=== PATIENT | female | born 1960 | race Caucasian/White ===

== ENCOUNTER 2018-09-02 13:03 | Emergency (ER) | payer BC, SELFPAY ==
[2018-09-02 13:05] VITALS: BP 124/70; PULSE 89; RESP 17; TEMP 36.3; O2SAT 98; BMI 27.4
--- NOTE | 2018-09-02 13:24 | RAD_ITS ---
STUDY: X-RAY - RIGHT KNEE REASON FOR EXAM: Female, 57 years old. Knee pain TECHNIQUE: AP and lateral view(s) of the knee. COMPARISON: None. FINDINGS: Normal visualized distal femur. Normal visualized proximal tibia and fibula. Normal proximal tibiofibular articulation. Normal medial femorotibial compartment. Normal lateral femorotibial compartment. Normal patellofemoral articulation. There is mild soft tissue edema. RAD/Knee 1 or 2 Views IMPRESSION: Mild soft tissue edema, no fractures Electronically Signed: Hector Sheikh, at 16:09 EDT Tel , Service support ,
--- NOTE | 2018-09-02 13:24 | RAD_ITS ---
STUDY: X-RAY - RIGHT TIBIA AND FIBULA REASON FOR EXAM: Female, 57 years old. Pain TECHNIQUE: AP and lateral view view(s) of the tibia and fibula were obtained. COMPARISON: None. FINDINGS: Normal visualized tibia. Normal visualized fibula. There is mild soft tissue edema. The bone mineralization is normal. No fracture RAD/Tibia & Fibula 2 Views IMPRESSION: Mild soft tissue edema, no fractures Electronically Signed: Hector Sheikh, at 16:08 EDT Tel , Service support ,
--- NOTE | 2018-09-02 13:24 | RAD_ITS ---
STUDY: X-RAY - RIGHT FOOT CLINICAL: Female, 57 years old. Foot pain TECHNIQUE: 5 view(s) of the foot. COMPARISON: None. FINDINGS: Normal talus, calcaneus, and tarsal bones. Normal visualized subtalar, talonavicular, calcaneocuboid, tarsal and tarsometatarsal articulations. Normal metatarsi. Normal metatarsophalangeal joint of the great toe. Normal tibial and fibular sesamoid bones. Normal interphalangeal joint of the great toe. Normal phalanges of the great toe. Normal second through fifth metatarsophalangeal joints. Normal interphalangeal joints and phalanges of the lesser toes. There is mild soft tissue edema. There is mild cortical deformity of the base of fifth metatarsal and the angled views. RAD/Foot min 3 Views IMPRESSION: Soft tissue edema Mild cortical deformity base of the fifth metatarsal most likely projectional finding. If the patient has point tenderness in this region CT would be recommended to exclude fracture Electronically Signed: Hector Sheikh, at 16:07 EDT Tel , Service support ,
--- NOTE | 2018-09-02 13:27 | ED.VISSUMM ---
- ER Visit Summary Date of Service: 09/02/18 Chief Complaint: [Injury right leg] History of Present Illness: The patient is a 57 F [presents to the emergency department after sustaining an injury to her right leg when she jumped out of a pickup truck bed yesterday. Patient immediately felt discomfort in her knee and foot. Patient having a hard time bearing any weight secondary to pain. She did not actually fall down. She did not strike her head. Patient otherwise has no medical history. She denies any other injuries.] Physical Examination: [HEENT-PERRLA, EOMI. Cranial nerves II through XII grossly intact. TMs clear. Mucous membranes moist. No adenopathy. Cardiovascular-regular rate and rhythm without murmur or ectopy Lungs-clear to auscultation, chest wall stable without crepitus or subcu emphysema Abdomen-normoactive bowel sounds, soft, nontender, no rebound or rigidity, no peritoneal signs. Extremities-intact ?4, normal range of motion, normal pulses, atraumatic. Right leg-evaluation of the knee reveals some tenderness over the lateral joint line and proximal fibula. Patient has pain with lifting the leg off the bed as well as with flexion extension at the knee. Ligamentous exam difficult secondary to pain. Patient has some mild tenderness to palpation over the lateral aspect of the talus and posterior calcaneus. Achilles tendon is intact and nontender. Negative Guerrero's test. Neurovascular intact distally.] Test Results: [X-rays of the right foot obtained showed questionable cortical irregularity at the base of the fifth metatarsal and it is unclear if this is projectional versus possible fracture. X-rays of the tib-fib and knee obtained showed no fractures only some mild soft tissue swelling.] Emergency Department Course and Treatment: [Patient has minimal tenderness over the base of the fifth metatarsal therefore my suspicion for fracture is low. Patient was placed in a postop shoe and given a knee immobilizer.] Treatment Plan: [Patient to follow-up with orthopedics signalling and communications engineer. Patient given crutches and knee immobilizer. She denies anything for pain. She will continue to use ibuprofen.] Disposition: [Discharged home stable condition.] Impression: [Right foot sprain Right knee sprain-possible internal derangement] This note was generated with [employer] software. It may contain incorrect words, spelling, and punctuation that were not noted in review of the chart prior to signing ED Disposition - Plan for ED Patient: Referrals: [facility] Doctor,Out of [NON-STAFF] -
--- NOTE | 2018-09-02 16:29 | ED.DEP ---
ED Disposition - Plan for ED Patient: Instructions: ED Meniscal Injury Knee Poss, ED Sprain Foot Referrals: [facility],Out of [NON-STAFF] - Jennifer Arndt DO [STAFF PHYSICIAN] - 3-5 Days
== END 2018-09-02 16:52 | disposition home or self-care (01) ==
PROVIDERS: Emergency Provider Emergency Medicine; Family Provider Nurse Practitioner; PCP Nurse Practitioner
DX: S93.601A Unspecified sprain of right foot, initial encounter (principal); S83.91XA Sprain of unspecified site of right knee, initial encounter; W17.89XA Other fall from one level to another, initial encounter; Y93.9 Activity, unspecified; Y92.9 Unspecified place or not applicable; Y99.9 Unspecified external cause status
CPT/HCPCS: 73560; 73590; 73630; 99284

== ENCOUNTER → 2018-09-20 08:04 | Outpatient (CLI) | payer SELFPAY ==
[2018-09-06 13:02] VITALS: BMI 28.3
--- NOTE | 2018-09-20 08:06 | RAD_ITS ---
STUDY: X-RAY - RIGHT FOOT CLINICAL: Female, 58 years old. Fracture TECHNIQUE: 3 view(s) of the foot. COMPARISON: 09/02/2018 FINDINGS: Normal talus, calcaneus, and tarsal bones. Normal visualized subtalar, talonavicular, calcaneocuboid, tarsal and tarsometatarsal articulations. Remote deformity of the fifth metatarsal. Normal metatarsophalangeal joint of the great toe. Normal tibial and fibular sesamoid bones. Normal interphalangeal joint of the great toe. Normal phalanges of the great toe. Normal second through fifth metatarsophalangeal joints. Normal interphalangeal joints and phalanges of the lesser toes. The soft tissue structures are unremarkable. RAD/Foot min 3 Views IMPRESSION: Remote deformity of the fifth metatarsal. No acute osseous abnormality is evident. Electronically Signed: Perez King MD at 16:51 EDT Tel , Service support ,
== END ==
PROVIDERS: Family Provider Nurse Practitioner; PCP Nurse Practitioner; Referring Provider Physician Assistant; Visit Provider Physician Assistant
DX: S92.351A Displaced fracture of fifth metatarsal bone, right foot, initial encounter for closed fracture (principal); X58.XXXA Exposure to other specified factors, initial encounter; Y93.9 Activity, unspecified; Y92.9 Unspecified place or not applicable; Y99.9 Unspecified external cause status
CPT/HCPCS: 73630

== ENCOUNTER → 2018-10-22 08:49 | Outpatient (CLI) | payer SELFPAY ==
[2018-10-22 08:36] VITALS: BMI 28.3
--- NOTE | 2018-10-22 08:51 | RAD_ITS ---
STUDY: X-RAY - RIGHT KNEE REASON FOR EXAM: Female, 58 years old. Right knee injury TECHNIQUE: 5 view(s) of the knee. COMPARISON: None. FINDINGS: Normal visualized distal femur. Normal visualized proximal tibia and fibula. Normal proximal tibiofibular articulation. Normal medial femorotibial compartment. Normal lateral femorotibial compartment. Normal patellofemoral articulation. Trace joint effusion The soft tissue structures are unremarkable. RAD/Knee 4 or More Views IMPRESSION: No acute osseous injury. Trace joint effusion. Electronically Signed: Jomar Bales DO at 11:49 EDT Tel , Service support ,
== END ==
PROVIDERS: Family Provider Nurse Practitioner; PCP Nurse Practitioner; Referring Provider Physician Assistant; Visit Provider Physician Assistant
DX: S86.911A Strain of unspecified muscle(s) and tendon(s) at lower leg level, right leg, initial encounter (principal)
CPT/HCPCS: 73564

== ENCOUNTER → 2019-08-05 | Outpatient (CLI) | payer OTHER, SELFPAY ==
[2018-10-22 08:36] VITALS: BMI 28.3
[2019-08-09 16:20] LABS: HPV HC, High Risk Positive (Negative); HPV Reflexed? YES, CHARGE PATIENT
== END | disposition home or self-care (01) ==
PROVIDERS: PCP Nurse Practitioner; Referring Provider Nurse Practitioner; Visit Provider Nurse Practitioner
DX: Z01.419 Encounter for gynecological examination (general) (routine) without abnormal findings (principal)
CPT/HCPCS: 87624; 88175; G0145